=== PATIENT | male | born 1990 | race Caucasian/White ===

== ENCOUNTER 2018-07-03 08:54 | Emergency (ER) | payer SELFPAY ==
[2018-07-03 08:59] VITALS: BP 155/98; PULSE 96; RESP 18; TEMP 36.7; O2SAT 999; BMI 41.3
--- NOTE | 2018-07-03 10:29 | ED_ITS ---
HPI - Nausea/Vomiting/Diarrhea General Chief complaint: Nausea/Vomiting/Diarrhea Stated complaint: Throwing up, black puke Time Seen by Provider: 07/03/18 10:01 Source: patient Mode of arrival: ambulatory Limitations: no limitations History of Present Illness HPI Narrative: This is a 28-year-old male comes emergency department with complaint of nausea and vomiting. Patient states he threw up black substance overnight. He states that he has not had any more emesis since about 630 this morning. He states that he felt sort and nauseated for the day before and then last night about 6:00 a.m. started vomiting. He states he has not had any abdominal pain he has a little bit of discomfort on each side of his ribs after vomiting but otherwise no abdominal pain. He is not having any back pain or flank pain. He has not had any fevers or chills. He has had maybe a little bit of nasal congestion. Has not had any diarrhea or constipation. No black or bloody stools. He states he did have sick contact with a neighbor's kid who was at his house for several hours was recently diagnosed with influenza and had vomiting. Patient also works in the food industry. Patient is reluctant to do any work or further evaluation as he does not have insurance. The patient denies any other past medical history, he does not normally have symptoms like this the last time he had it was about age 17. No prior surgeries. He is not on any medications regularly. Related Data Previous Rx's Medication Instructions Recorded ondansetron HCl [Zofran] 4 mg PO QID PRN #5 tab 07/03/18 Allergies Allergy/AdvReac Type Severity Reaction Status Date / Time No Known Drug Allergies Allergy Verified 07/03/18 08:59 Review of Systems Review of Systems ROS Unobtainable: All systems reviewed & are unremarkable except as noted in HPI and below Constitutional Denies body ache(s), Denies chills, Denies fever(s), Denies headache(s), Denies lethargy and Denies weakness ENT Ears, Nose, Mouth, and Throat: Denies headache(s) and Reports nasal congestion Cardiovascular Denies chest pain, Denies irregular heart rhythm, Denies lightheadedness, Denies palpitations, Denies dyspnea and Denies dyspnea on exertion Respiratory Denies chest congestion, Denies cough, Denies dyspnea, Denies dyspnea on exertion and Denies wheezing Gastrointestinal Gastrointestinal: Denies abdominal pain, Denies melena, Denies hematochezia, Denies change in bowel habits, Denies diarrhea, Reports nausea, Reports vomiting and Reports hematemesis ( Black emesis) Genitourinary Denies hematuria, Denies dysuria, Denies flank pain and Denies urinary urgency Musculoskeletal Denies back pain Integumentary/Breasts Denies unusual bruising Neurologic Denies headache(s) and Denies weakness Endocrine Denies palpitations Allergic/Immunologic Denies wheezing PFSH Social History alcohol intake: current Exam Narrative Exam Narrative: GENERAL: Alert and oriented x three, obese male in no acute distress. HEENT: Head normocephalic, atraumatic, EOMI, pupils reactive, face symmetric, moist mucous membranes NECK: Supple, full range of motion CARDIOVASCULAR: Regular rate and rhythm without murmurs, rubs or gallops. RESPIRATORY: Breath sounds equal bilaterally, no wheezes rales or rhonchi. ABDOMEN: Soft, nontender. Normoactive bowel sounds all 4 quadrants. No guarding or rebound, rigidity, no mass : No CVA tenderness EXTREMITIES: Normal range of motion, no clubbing or edema. Neurovascularly intact NEUROLOGICAL: Cranial nerves II through XII grossly intact. Moving all extremities SKIN: Warm, dry, no petechiae, no rashes or lesions. Initial Vital Signs Initial Vital Signs: Vital Signs Temperature 98.1 F 07/03/18 08:59 Pulse Rate 96 H 07/03/18 08:59 Respiratory Rate 18 07/03/18 08:59 Blood Pressure 155/98 H 07/03/18 08:59 Pulse Oximetry 999 H 07/03/18 08:59 Course Orders Ordered: Discontinued Medications Ondansetron HCl (Zofran) 4 mg IV NOW ONE Stop: 07/03/18 09:01 Vital Signs - 8 hr 07/03/18 08:59 Temperature 98.1 F Pulse Rate 96 H Respiratory Rate 18 Blood Pressure 155/98 H Pulse Oximetry 999 H [facility] - Nausea/Vomiting/Diarrhea Lab Data Attestation: I reviewed the patient's lab results. MDM Narrative Medical decision making narrative: Discussed with patient he has not had any emesis for about 4 hr. He is not having any new abdominal pain. Per patient he does not drink large amount of alcohol. Discussed with patient if he has further symptoms he should return but vital signs are stable and suspicion for AA acute GI bleed is low at this point. I suspect that it may been more gastritis or some black or blood from recurrent vomiting. Will give patient a script for a couple of tablets of Zofran as he still has some nausea but if he is unable to afford told him he could try a dose of Benadryl at home. Discharge Plan Departure Patient Disposition: Home Clinical Impression: Nausea & vomiting Discharge Date/Time: 07/03/18 11:24 Interventions: ED Discharge Assessment Last Done: 07/03/18 11:24 Instructions: DI for Vomiting -- Adult Activity Restrictions/Additional Instructions: Return to the emergency department for fevers greater than 100.4 specially for having persistent vomiting, new abdominal pain, persistent black or red vomit, black or bloody stools, back pain, signs of dehydration or other new or concerning symptoms. You may take Zofran 1 tablet every 6 hr as needed for nausea. slowly advance her diet as tolerated, start with small sips of clear liquids for several hours then you may take larger sips of clear liquids and then advance to solid food such as bananas, rice or toast for similar foods. If he tolerates these after several hours he may start to eat a regular food. Prescriptions: New ondansetron HCl [Zofran] 4 mg tablet 4 mg PO QID PRN (Reason: nausea and vomiting) Qty: 5 RF: 0
--- NOTE | 2018-07-03 11:06 | PC.NURSE ---
pt spoke with dr hester and decided not to do the work up and to come back if needed.
[2018-07-03 11:07] VITALS: BP 120/73; PULSE 81; RESP 18; O2SAT 100
== END 2018-07-03 11:24 | disposition home or self-care (01) ==
PROVIDERS: Emergency Provider Emergency Medicine
DX: R11.2 Nausea with vomiting, unspecified (principal)
CPT/HCPCS: 99282; 99283

== ENCOUNTER → 2019-05-29 08:58 | Outpatient (CLI) | payer OTHER, SELFPAY ==
[2019-05-29 09:48] LABS: Influenza A - CEPHEID Flu A NEGATIVE (NEGATIVE); Influenza B - CEPHEID Flu B NEGATIVE (NEGATIVE)
== END ==
PROVIDERS: Visit Provider Nurse Practitioner
DX: R68.89 Other general symptoms and signs (principal)
CPT/HCPCS: 87502

== ENCOUNTER → 2021-08-15 13:22 | Outpatient (CLI) | payer OTHER, MEDICAID, SELFPAY ==
--- NOTE | 2021-08-15 13:25 | DI.RAD.S_ITS ---
PROCEDURE: XR LUMBAR SPINE 2-3V INDICATIONS: chronic low back pain with left leg tingling/numbness TECHNIQUE: 3 views of the lumbar spine were acquired. COMPARISON: None. FINDINGS: Bones: 5 [id number] vertebrae are present. There is grade 1 anterolisthesis at L5-S1 measuring approximately 0.7 cm. There is also multilevel minimal retrolisthesis from T12-L1 through L4-5 measuring up to 0.2 cm at L4-5. There is multilevel degenerative disc disease also demonstrated throughout the lumbar spine including moderate narrowing at L5-S1 with endplate sclerosis and osteophytosis. There is mild facet arthropathy in the lower lumbar spine. No vertebral body compression fractures. No suspicious bony lesions. Soft tissues: Overlying bowel gas pattern is normal. No suspicious soft tissue calcifications. IMPRESSION: 1. Grade 1 anterolisthesis at L5-S1 and minimal multilevel retrolisthesis throughout the lumbar spine as described. 2. Multilevel degenerative disc disease most prominent at L5-S1 where there is moderate degeneration. 3. Mild facet arthropathy in the lower lumbar spine. Dictated by: Roel Santoyo M.D. on 08/15/2021 at 16:53 Approved by: Roel Santoyo M.D. on 08/15/2021 at 16:55
--- NOTE | 2021-08-15 13:25 | DI.RAD.S_ITS ---
PROCEDURE: XR KNEE LT 3V INDICATIONS: left knee pain, locking and giving way sensation TECHNIQUE: 3 views of the knee were acquired. COMPARISON: None. FINDINGS: Bones: No fractures or dislocations. No suspicious bony lesions. Soft tissues: No joint effusion. Dystrophic calcification is noted adjacent to the lateral femoral condyle. In addition there is appearance of a loose body. IMPRESSION: Calcification appearing suggestive of loose body. Dictated by: Leigh Tobias M.D. on 08/15/2021 at 16:08 Approved by: Leigh Tobias M.D. on 08/15/2021 at 16:08
[2021-08-15 14:08] LABS: Add Manual Diff / Slide Review NO; Basophils Absolute Auto 100 /uL (0-100); Basophils Percent Auto 0.9 % (0-2); Eosinophils Absolute Auto 100 /uL (0-450); Eosinophils Percent Auto 1.2 % (2-4); Hematocrit 46.3 % (41-53); Hemoglobin 15.7 g/dL (13.5-17.5); Lymphocytes Absolute Auto 2100 /uL (1100-4500); Lymphocytes Percent Auto 24.5 % (25-40); Mean Corpuscular HGB Conc 33.9 % (30-36); Mean Corpuscular Hemoglobin 28.3 PG (26-34); Mean Corpuscular Volume 83.3 fL (80-100); Monocytes Absolute Auto 700 /uL (0-900); Monocytes Percent Auto 7.9 % (3-14); Neutrophils Absolute Auto 5600 /uL (1500-7000); Neutrophils Percent Auto 65.5 % (50-75); Platelet Count 329 X10^3/uL (150-400); Red Blood Cell Count 5.56 X10^6/uL (4.5-5.9); Red Cell Distribution Width 14.4 % (11.6-14.8); White Blood Cell Count 8.6 X10^3/uL (4.5-11.0)
[2021-08-15 14:29] LABS: Alanine Aminotransferase 57 IU/L (<50); Albumin 4.5 g/dL (3.5-5.0); Albumin Globulin Ratio 1.4 (1.0-2.8); Alkaline Phosphatase 90 U/L (38-126); Aspartate Aminotransferase 39 IU/L (17-59); BUN Creatinine Ratio 10.2 (6-22); Bilirubin Total 0.5 mg/dL (0.2-1.3); Blood Urea Nitrogen 11 mg/dL (9-20); Calcium 9.1 mg/dL (8.4-10.2); Carbon Dioxide 28 mmol/L (22-32); Chloride 106 mmol/L (98-107); Cholesterol 219 mg/dL (140-199); Estimated Glomerular Filt Rate > 60 mL/min (>60); Globulin 3.3 g/dL (1.7-4.1); Glucose 97 mg/dL (70-100); HDL Cholesterol 58 mg/dL (40-60); HEMOLYSIS < 15 (0-50); LDL Cholesterol Calculated 145 mg/dL (<100); Potassium 4.6 mmol/L (3.4-5.1); Sodium 138 mmol/L (137-145); Total Protein 7.8 g/dL (6.3-8.2); Triglycerides 79 mg/dL (35-150)
[2021-08-15 14:58] LABS: TSH w/ Reflex to FT4 0.83 uIU/mL (0.47-4.68)
== END ==
PROVIDERS: PCP Family Medicine; Referring Provider Family Medicine; Visit Provider Family Medicine
DX: M51.37 Other intervertebral disc degeneration, lumbosacral region (principal); M43.17 Spondylolisthesis, lumbosacral region; M47.816 Spondylosis without myelopathy or radiculopathy, lumbar region; M25.862 Other specified joint disorders, left knee; M25.562 Pain in left knee; M54.50 Low back pain, unspecified; G89.29 Other chronic pain; E66.9 Obesity, unspecified; G43.909 Migraine, unspecified, not intractable, without status migrainosus
CPT/HCPCS: 36415; 72100; 73562; 80053; 80061; 84443; 85025

== ENCOUNTER → 2022-02-11 10:50 | Outpatient (CLI) | payer OTHER, MEDICAID, SELFPAY ==
--- NOTE | 2022-02-11 11:37 | DI.MRI.S_ITS ---
PROCEDURE: MR LUMBAR SPINE WO CON INDICATIONS: chronic back pain, spondylolisthesis TECHNIQUE: Noncontrast sagittal T1 spin echo and T2 fast echo, sagittal STIR, and T2 fast spin echo through the lumbar spine. In cases with scoliosis, additional coronal T2 fast spin echo may be performed. COMPARISON: [facility], CR, XR LUMBAR SPINE 2-3V, 08/15/2021, 13:30. FINDINGS: Image quality: Excellent. Alignment and Curvature: Grade 1 L5-S1 anterolisthesis is seen. Associated pars defects are not definitely seen on these images. Bone Marrow: Marrow is of normal overall signal. No acute vertebral body compression fractures. Spinal Cord: Conus medullaris terminates at the L1 level. Visualized cord demonstrates normal signal and size. Paraspinous Soft Tissues: No paravertebral masses. T12-L1: Normal appearance. L1-L2: Normal appearance. L2-L3: Mild loss of disc height is seen. Loss of disc signal is seen. Mild to moderate disc bulge is seen, which is eccentric the left, with a broad disc protrusion, extending into the left neural foramen. There is a focal annular fissure seen posteriorly and on the left. Mild facet joint hypertrophy is seen. There is moderate left-sided and no significant right-sided neural foraminal narrowing. Moderate central canal narrowing is seen. L3-L4: [id number]-an-htiqfxqh loss of disc height and disc signal can be seen. Moderate disc bulge is seen, with a central/left disc protrusion. There is a focal annular fissure seen posteriorly. At least moderate facet hypertrophy is seen. Moderate bilateral neural foraminal narrowing can be seen, left worse than right. Moderate central canal narrowing is seen. L4-L5: Moderate loss of disc height is seen. Loss of disc signal is seen. Moderate generalized disc bulge is seen. There is a superimposed central disc protrusion. Moderate facet joint hypertrophy is seen. There is at least moderate bilateral neural foraminal narrowing seen, right slightly worse than left. There is a degree of compression seen upon the exiting nerve roots. Moderate central canal narrowing is seen. L5-S1: At least moderate loss of disc height and disc signal can be seen. Reactive marrow endplate changes are seen, which are hyperintense on T1-weighted and T2-weighted imaging and most consistent with fatty metaplasia (Modic type II changes). Mild to moderate disc bulge is seen, with a central disc protrusion/disc central disc uncovering. Prominent facet hypertrophy is seen. There is moderate to severe bilateral neural foraminal narrowing seen, with an associated a degree of compression seen upon the exiting nerve roots. Mild central canal narrowing is seen. IMPRESSION: Lumbar spine degenerative changes are seen, which are worst at the L5-S1 level. Dictated by: Fazal Mendoza M.D. on 02/13/2022 at 8:27 Approved by: Fazal Mendoza M.D. on 02/13/2022 at 8:33
== END ==
PROVIDERS: PCP Family Medicine; Referring Provider Family Medicine; Visit Provider Family Medicine
DX: M47.816 Spondylosis without myelopathy or radiculopathy, lumbar region (principal); M47.817 Spondylosis without myelopathy or radiculopathy, lumbosacral region; M54.42 Lumbago with sciatica, left side; M48.061 Spinal stenosis, lumbar region without neurogenic claudication; M43.10 Spondylolisthesis, site unspecified; G89.29 Other chronic pain
CPT/HCPCS: 72148

== ENCOUNTER 2022-06-29 12:42 | Outpatient (CLI) | payer OTHER, MEDICAID, SELFPAY ==
[2022-06-29] VITALS (8 sets, daily range): BP systolic 113–145; BP diastolic 71–88; PULSE 90–99; RESP 15–20; TEMP 36.7; O2SAT 94–95
--- NOTE | 2022-06-29 12:42 | DI.RAD.S_ITS ---
PROCEDURE: PAIN L/S TRANSFORAMINAL INJECT INDICATIONS: SPONDYLOSIS COMPARISON: None. FINDINGS: Fluoroscopic spot filming was performed to verify placement of spinal needles at the L4-5 level(s), as labeled on the films. Appropriate location(s) of the needle tip(s) was confirmed by injection of iodinated contrast. IMPRESSION: Fluoroscopic guidance utilized for a transfemoral injection. Dictated by: Bossman Ramsey M.D. on 06/29/2022 at 17:14 Approved by: Bossman Ramsey M.D. on 06/29/2022 at 17:15
[2022-06-29] MEDS: MIDAZOLAM 2 MG/2 ML VIAL IV (13:38)
[2022-06-29] MEDS: IOPAMIDOL 15 ML VIAL 3 ML INJ (13:42)
[2022-06-29] MEDS: BUPIVACAINE 0.25% (PF) VIAL 2 ML INJ (13:42)
[2022-06-29] MEDS: DEXAMETHASONE 10 MG/ML VIAL 15 MG INJ (13:42)
--- NOTE | 2022-06-29 17:14 | P.PCN_ITS ---
Date/Time/Diagnoses Date of procedure: 06/29/22 Time of procedure: 13:30 Procedure Notes Physician: Rio Villa Total Fluoroscopy time (seconds): 30 Total sedation minutes: 13 Procedure in detail & Post-procedure care: Left L5-S1 Transforaminal Epidural Steroid Injection Indications: Nikolas is referred by Dr. Topete for treatment of lumbar radiculopathy with low back and leg pain. Preoperative diagnosis: Left lumbar radiculopathy Postoperative diagnosis: Same Focused Examination: Ax3 Mood and affect are normal Vital Signs: VSS ASA: 2 Consent: Following review of allergies and potential side effects/complications, including, but not necessarily limited to, infection, allergic reaction, local tissue breakdown, stroke, temporary or permanent nerve injury, paralysis, and possible , the patient indicated that they understood and agreed to proceed.? An informed consent document was signed by the patient, witnessed by a nurse and placed in the patient's chart.? Additionally, other treatment options including medications and physical therapy were reviewed with the patient. All questions were answered. Site was then marked. Anesthesia: After review of previous anesthetic history and IV conscious sedation, the patient was deemed safe to proceed with today's procedure with IV conscious sedation. IV sedation was accomplished with Versed 2 mg administered by the RN after order by Dr. Villa. Sedation was titrated to patient comfort during the course of the procedure. Patient remained responsive to all verbal commands. Position: Prone Monitoring: NIBP, Pulse oximetry, 3 lead EKG Needle used: 22G, 5 inch spinal needle Contrast: Isovue 300M Injectate: 15 mg Dexamethasone mixed with 0.25% bupivacaine 2 mL Technique: The skin was prepped with chloraprep and draped in a sterile fashion. Time out was performed as per protocol. Oxygen applied via NC. Skin and subcutaneous structures of the needle entry site were infiltrated with 3mL of lidocaine 1%. Under fluoroscopic guidance, using an ipsilateral oblique view,?a 22 gauge 5 inch needle was advanced to the base of the L5?pedicle.? The needle was advanced to the superio-posterior aspect of the neural foramen under lateral view.? Oblique and AP views were rechecked. No paresthesias noted by the patient during needle placement. In AP view and utilizing real-time digital subtraction fluoroscopy, 2 ml contrast was slowly injected. Epidural spread was observed without evidence for intravascular nor intrathecal uptake. The above injectate was then administered, and the needle was subsequently withdrawn. Band-Aids applied to injection sites. EBL: less than 1 ml Complications: None Post Procedure: Patient was taken to the recovery and monitored. The patient was provided a Pain Log to continue to record the patient's response to the target- specific procedure prior to the patient's follow-up visit with the referring physician. Patient was stable upon discharge. Detailed post procedure instructions were provided. Patient was asked to call in the event of worsening pain, fever, weakness, numbness or bladder or bowel incontinence.
== END 2022-06-29 14:09 | disposition home or self-care (01) ==
LOC: RAD 12:42
PROVIDERS: PCP Family Medicine; Referring Provider Anesthesiology; Visit Provider Anesthesiology
DX: M54.16 Radiculopathy, lumbar region (principal)
CPT/HCPCS: 64483; 99152; J1100; J2250; J3490

== ENCOUNTER 2022-08-15 10:25 | Outpatient (CLI) | payer OTHER, MEDICAID, SELFPAY ==
[2022-08-15] VITALS (8 sets, daily range): BP systolic 122–154; BP diastolic 67–97; PULSE 98–106; RESP 18–20; TEMP 36.9; O2SAT 96–98
--- NOTE | 2022-08-15 10:26 | DI.RAD.S_ITS ---
PROCEDURE: PAIN L/S TRANSFORAMINAL INJECT INDICATIONS: SPONDYLOSIS COMPARISON: [facility], , PAIN L/S TRANSFORAMINAL INJECT, 06/29/2022, 14:37. FINDINGS: Fluoroscopic spot filming was performed to verify placement of a spinal needle at the L5-S1 level, as labeled on the films. Appropriate location of the needle tip was confirmed by injection of iodinated contrast. IMPRESSION: No significant intraprocedural abnormality. Dictated by: Fazal Mendoza M.D. on 08/15/2022 at 11:17 Approved by: Fazal Mendoza M.D. on 08/15/2022 at 11:17
[2022-08-15] MEDS: MIDAZOLAM 2 MG/2 ML VIAL IV (11:02)
[2022-08-15] MEDS: IOPAMIDOL 15 ML VIAL 3 ML INJ (11:07)
[2022-08-15] MEDS: DEXAMETHASONE 10 MG/ML VIAL 20 MG INJ (11:07)
--- NOTE | 2022-08-15 11:18 | P.PCN_ITS ---
Date/Time/Diagnoses Date of procedure: 08/15/22 Time of procedure: 11:00 Procedure Notes Physician: Rio Villa Total Fluoroscopy time (seconds): 26 Total sedation minutes: 11 Procedure in detail & Post-procedure care: Right L5-S1 Transforaminal Epidural Steroid Injection Indications: Nikolas is presenting for treatment of lumbar radiculopathy with low back and leg pain. Preoperative diagnosis: Right lumbar radiculopathy Postoperative diagnosis: Same Focused Examination: Ax3 Mood and affect are normal Vital Signs: VSS ASA: 2 Consent: Following review of allergies and potential side effects/complications, including, but not necessarily limited to, infection, allergic reaction, local tissue breakdown, stroke, temporary or permanent nerve injury, paralysis, and possible , the patient indicated that they understood and agreed to proceed.? An informed consent document was signed by the patient, witnessed by a nurse and placed in the patient's chart.? Additionally, other treatment options including medications and physical therapy were reviewed with the patient. All questions were answered. Site was then marked. Anesthesia: After review of previous anesthetic history and IV conscious s edation, the patient was deemed safe to proceed with today's procedure with IV conscious sedation. IV sedation was accomplished with midazolam 2 mg administered by the RN after order by Dr. Villa. Sedation was titrated to patient comfort during the course of the procedure. Patient remained responsive to all verbal commands. Position: Prone Monitoring: NIBP, Pulse oximetry, 3 lead EKG Needle used: 22G 5 inch spinal needle Contrast: Isovue 300M Injectate: 15 mg Dexamethasone mixed with 1% lidocaine 1.5ml Technique: The skin was prepped with chloraprep and draped in a sterile fashion. Time out was performed as per protocol. Oxygen applied via NC. Skin and subcutaneous structures of the needle entry site were infiltrated with 3mL of lidocaine 1%. Under fluoroscopic guidance, using an ipsilateral oblique view,?a 22 gauge 5 inch needle was advanced to the base of the right L5?pedicle.? The needle was advanced to the superio-posterior aspect of the neural foramen under lateral view.? Oblique and AP views were rechecked. No paresthesias noted by the patient during needle placement. In AP view and utilizing real-time digital subtraction fluoroscopy, 2 ml contrast was slowly injected. Epidural spread was observed without evidence for intravascular nor intrathecal uptake. Contrast spread was seen craniocaudally. The above injectate was then administered, and the needle was subsequently withdrawn. Band-Aids applied to injection sites. EBL: less than 1 ml Complications: None Post Procedure: Patient was taken to the recovery and monitored. The patient was provided a Pain Log to continue to record the patient's response to the target- specific procedure prior to the patient's follow-up visit with the referring physician. Patient was stable upon discharge. Detailed post procedure instructions were provided. Patient was asked to call in the event of worsening pain, fever, weakness, numbness or bladder or bowel incontinence.
== END 2022-08-15 11:34 | disposition home or self-care (01) ==
LOC: RAD 10:26
PROVIDERS: PCP Family Medicine; Referring Provider Anesthesiology; Visit Provider Anesthesiology
DX: M54.16 Radiculopathy, lumbar region (principal)
CPT/HCPCS: 64483; 99152; J1100; J2250

== ENCOUNTER → 2023-01-02 15:47 | Outpatient (CLI) | payer OTHER, SELFPAY ==
[2023-01-02 16:25] LABS: Alanine Aminotransferase 48 IU/L (<50); Albumin 4.5 g/dL (3.5-5.0); Albumin Globulin Ratio 1.3 (1.0-2.8); Alkaline Phosphatase 82 U/L (38-126); Aspartate Aminotransferase 29 IU/L (17-59); BUN Creatinine Ratio 15.8 (6-22); Bilirubin Total 0.9 mg/dL (0.2-1.3); Blood Urea Nitrogen 16 mg/dL (9-20); Calcium 8.9 mg/dL (8.4-10.2); Carbon Dioxide 26 mmol/L (22-32); Chloride 102 mmol/L (98-107); Cholesterol 197 mg/dL (140-199); Estimated Glomerular Filt Rate > 60 mL/min (>60); Globulin 3.6 g/dL (1.7-4.1); Glucose 97 mg/dL (70-100); HDL Cholesterol 49 mg/dL (40-60); HEMOLYSIS < 15 (0-50); LDL Cholesterol Calculated 117 mg/dL (<100); Potassium 4.1 mmol/L (3.4-5.1); Sodium 137 mmol/L (137-145); Total Protein 8.1 g/dL (6.3-8.2); Triglycerides 155 mg/dL (35-150)
== END ==
PROVIDERS: PCP Family Medicine; Referring Provider Physician Assistant; Visit Provider Physician Assistant
DX: Z13.9 Encounter for screening, unspecified (principal); E78.5 Hyperlipidemia, unspecified; R74.8 Abnormal levels of other serum enzymes
CPT/HCPCS: 36415; 80053; 80061; 83036

== ENCOUNTER → 2023-01-08 14:53 | Outpatient (CLI) | payer OTHER, SELFPAY ==
--- NOTE | 2023-01-08 14:54 | DI.US.S_ITS ---
PROCEDURE: US SCROTUM INDICATIONS: LEFT SCROTAL MASS X 1 YEAR. RECENT PAIN AND INCREASED SIZE. TECHNIQUE: Real-time scanning was performed of the scrotum and testicles, with image documentation. Color and pulse Doppler interrogation was performed of both testicles. COMPARISON: None. FINDINGS: Right: Testicle is normal in size at 4.5 x 3.1 x 2.2 cm. Tiny echogenic foci can be seen within the right testicle. Epididymis is normal in overall size and demonstrates a 4 mm epididymal head cyst. No hydrocele or varicoceles. Overlying scrotal skin is normal in thickness. Left: Testicle is normal in size at 4.3 x 3.3 x 2.3 cm. Tiny echogenic foci can be seen within the right testicle. Epididymis is normal in overall size and morphology. No hydrocele or varicoceles. Overlying scrotal skin is normal in thickness. The palpable lesion is seen superior to the scrotum and corresponds to a skin lesion with increased vascularity that measures 2.1 x 1 x 1.4 cm. This demonstrates a largely low echogenicity appearance, with mild internal apparent calcification. Doppler: Color and pulse Doppler demonstrate normal and symmetric arterial flow in both testicles. IMPRESSION: Negative for testicular mass. The palpable focus corresponds to a skin lesion within the scrotal wall superior to the testicle. 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 Dictated by: Fazal Mendoza M.D. on 01/08/2023 at 15:45 Approved by: Fazal Mendoza M.D. on 01/08/2023 at 15:47
== END ==
PROVIDERS: PCP Family Medicine; Referring Provider Physician Assistant; Visit Provider Physician Assistant
DX: N50.89 Other specified disorders of the male genital organs (principal)
CPT/HCPCS: 76870

== ENCOUNTER 2023-03-28 09:16 | Outpatient (CLI) | payer OTHER, SELFPAY ==
[2023-03-28] VITALS (8 sets, daily range): BP systolic 111–156; BP diastolic 73–97; PULSE 95–100; RESP 16–20; TEMP 36.5; O2SAT 94–97
--- NOTE | 2023-03-28 10:00 | DI.RAD.S_ITS ---
PROCEDURE: PAIN L/S TRANSFORAM INJECT KRISTEL COMPARISON: None. INDICATIONS: SPONDYLOSIS FINDINGS: Single fluoroscopic image demonstrates needle placement at right L5-S1. IMPRESSION: Single fluoroscopic image demonstrates needle placement at right L5-S1. Please see procedure report for details. Dictated by: Emir Vanessa M.D. on 03/28/2023 at 14:02 Approved by: Emir Vanessa M.D. on 03/28/2023 at 14:02
[2023-03-28] MEDS: MIDAZOLAM 2 MG/2 ML VIAL IV (10:13)
[2023-03-28] MEDS: iopamidoL 15 ML VIAL 3 ML INJ (10:16)
[2023-03-28] MEDS: DEXAMETHASONE 10 MG/ML VIAL 20 MG INJ (10:16)
--- NOTE | 2023-03-28 12:12 | P.PCN_ITS ---
Date/Time/Diagnoses Date of procedure: 03/28/23 Time of procedure: 10:00 Procedure Notes Physician: Rio Villa Total Fluoroscopy time (seconds): 48 Total sedation minutes: 17 Procedure in detail & Post-procedure care: Bilateral L5-S1 Transforaminal Epidural Steroid Injection Indications: Nikolas is presenting for treatment of lumbar radiculopathy with low back and leg pain. Preoperative diagnosis: Lumbar radiculopathy Postoperative diagnosis: Same Focused Examination: Ax3 Mood and affect are normal Vital Signs: VSS ASA: 2 Consent: Following review of allergies and potential side effects/complications, including, but not necessarily limited to, infection, allergic reaction, local tissue breakdown, stroke, temporary or permanent nerve injury, paralysis, and possible , the patient indicated that they understood and agreed to proceed.? An informed consent document was signed by the patient, witnessed by a nurse and placed in the patient's chart.? Additionally, other treatment options including medications and physical therapy were reviewed with the patient. All questions were answered. Site was then marked. Anesthesia: After review of previous anesthetic history and IV conscious sedat ion, the patient was deemed safe to proceed with today's procedure with IV conscious sedation. IV sedation was accomplished with midazolam 2 mg administered by the RN after order by Dr. Villa. Sedation was titrated to patient comfort during the course of the procedure. Patient remained responsive to all verbal commands. Position: Prone Monitoring: NIBP, Pulse oximetry, 3 lead EKG Needle used: 22G 5 inch spinal needle Contrast: Isovue 300M Injectate: 7.5 mg Dexamethasone mixed with 1% lidocaine 1 ml and normal saline 1 mL per side Technique: The skin was prepped with chloraprep and draped in a sterile fashion. Time out was performed as per protocol. Oxygen applied via NC. Skin and subcutaneous structures of the needle entry site were infiltrated with 3mL of lidocaine 1%. Under fluoroscopic guidance, using an ipsilateral oblique view,?a 22 gauge 5 inch needle was advanced to the base of the right L5?pedicle.? The needle was advanced to the superio-posterior aspect of the neural foramen under lateral view.? Oblique and AP views were rechecked. No paresthesias noted by the patient during needle placement. In AP view and utilizing real-time digital subtraction fluoroscopy, 2 ml contrast was slowly injected. Epidural spread was observed without evidence for intravascular nor intrathecal uptake. Contrast spread was seen craniocaudally. The above injectate was then administered without paresthesias and the needle was subsequently withdrawn. The needle entry site were infiltrated with 3mL of lidocaine 1%. Under fluoroscopic guidance, using an ipsilateral oblique view,?a 22 gauge 5 inch needle was advanced to the base of the left L5?pedicle.? The needle was advanced to the superio-posterior aspect of the neural foramen under lateral view.? Oblique and AP views were rechecked. No paresthesias noted by the patient during needle placement. In AP view and utilizing real-time digital subtraction fluoroscopy, 2 ml contrast was slowly injected. Epidural spread was observed without evidence for intravascular nor intrathecal uptake. Contrast spread was seen craniocaudally. The above injectate was then administered without paresthesias and the needle was subsequently withdrawn. Band-Aids applied to injection sites. EBL: less than 1 ml Complications: None Post Procedure: Patient was taken to the recovery and monitored. The patient was provided a Pain Log to continue to record the patient's response to the target- specific procedure prior to the patient's follow-up visit with the referring physician. Patient was stable upon discharge. Detailed post procedure instructions were provided. Patient was asked to call in the event of worsening pain, fever, weakness, numbness or bladder or bowel incontinence.
== END 2023-03-28 10:52 | disposition home or self-care (01) ==
LOC: RAD 09:17
PROVIDERS: PCP Family Medicine; Referring Provider Anesthesiology; Visit Provider Anesthesiology
DX: M54.16 Radiculopathy, lumbar region (principal)
CPT/HCPCS: 64483; 99152; J1100; J2250

== ENCOUNTER 2023-03-30 07:31 | Day surgery (SDC) | payer OTHER, SELFPAY ==
[2023-03-28 14:02] VITALS: BMI 40.1
[2023-03-30] VITALS (7 sets, daily range): BP systolic 113–152; BP diastolic 68–91; PULSE 91–110; RESP 12–16; TEMP 36.3–37.7; O2SAT 94–99; BMI 40.1
--- NOTE | 2023-03-30 | PATH_ITS ---
[facility] Accession Number: [id number] No. of containers..01 Tissue . 01 Material submitted: . scrotum - LEFT SCROTAL WALL MASS . 01 Diagnosis: Left Scrotal Wall, Excision: Verrucous epidermal inclusion cyst, ruptured and inflamed. MRV 04/12/2023 1337 Local . 01 Electronically signed: . Екатерина Lama MD, Dermatopathologist NPI- [id number] . 01 Gross description: . The specimen is received in formalin, labeled with the patient's name, , and left scrotal wall mass, and consists of an unoriented ellipse of skin measuring 2.1 x 2.0 x 1.5 cm. The margin is inked blue. Sectioning reveals a thin, smooth-walled cystic structure measuring 1.3 cm in greatest dimension filled with wyatt, paste-like material. A surgical sales representative section is submitted in cassette A1. ([id number]) . The remaining specimen is submitted entirely in cassettes A2-A4. ([id number]) /FRR 04/11/2023 0822 Local . 01 Pathologist provided ICD-10: L72.0 . 01 CPT . 266594 Specimen Comment: A courtesy copy of this report has been sent to [phone] Performed at: [facility] [address] [place] [address], [place], [place] [id number] MD Roel Baldwin MD Phone: [phone]
[2023-03-30] MEDS: LACTATED RINGERS 1,000 ML 21 ML IV (07:58)
--- NOTE | 2023-03-30 09:36 | PM.PREOP ---
Pre-operative Note Interval Note History & Physical reviewed/Exam performed by Physician: Yes Changes to H&P: No
[2023-03-30] MEDS: CEFAZOLIN VIAL 3 GM in SODIUM CHLORIDE 0.9% 100 ML IV (10:19)
[2023-03-30] MEDS: ACETAMINOPHEN IV 1,000 MG/100 ML VIAL 400 MG IV (10:34)
--- NOTE | 2023-03-30 10:37 | SUR.OPER ---
Supine on padded OR bed, head on pillow, arms secured on padded arm boards at <90 degrees abduction, legs uncrossed, safety belt at thigh, tape over blanket over lower legs.
[2023-03-30] MEDS: BUPIVACAINE 0.25% (PF) 30 ML, EPINEPHrine 0.15 MG INJ (10:44)
[2023-03-30] MEDS: BUPIVACAINE LIPOSOME 266 MG/20 ML VIAL INJ (10:47)
[2023-03-30] MEDS: BACITRACIN 28 GM OINT 1 APPLIC TOP (11:14)
--- NOTE | 2023-03-30 11:29 | P.OP_ITS ---
Operative Date/Time/Diagnoses Date of procedure: 03/30/23 Time of procedure: 11:29 Pre-op diagnosis: 1. Left scrotal wall mass. Post-op diagnosis: same Procedure & Clinicians Procedure: 1. Excision left scrotal wall mass (3 x 5 cm). Same procedure as scheduled: Yes Indications: 1. Left scrotal wall mass. 2. Pain. Surgeon: Chetan Ibrahim Click Yes if Unassisted: Yes Anesthesia Type: General and Local (0.25% Marcaine with epinephrine and 1.33% Exparel.) Operative Notes Findings: Ovoid subcutaneous left upper lateral scrotal wall mass with smooth margin. Closure Type: primary Estimated Blood Loss (mL): 1 Blood products transfused: none Procedure in detail: The patient was positioned in supine and administered general anesthesia. The lower abdomen, genitalia, and groin in upper thighs were prepped and draped in sterile fashion. A surgical marker was used to delineate planned incision lines to encompass the index lesion. Mixed local anesthetic was then used to infiltrate the parameter and subcutaneous space. An elliptical cutaneous incision was made encompassing the index lesion. Once in the subcutaneous plane blunt, sharp, and blunt dissection were used to mobilize the structure and separate it from attachments. The lesion was then submitted to pathology for routine gross and microscopic examination. Pinpoint cautery was conducted for hemostasis. 3-0 Monocryl was used in the subcutaneous space in a running fashion to close space in approximate the dartos fascia. The skin was reapproximated with a running 4-0 Monocryl using a horizontal mattress technique. The skin surface was then cleaned and dried and dressed with antibiotic ointment, Telfa and then sterile fluff gauze. The patient was then fitted with a pair of net short to keep the dressing arrangement in place. The patient was then awakened, transferred to [facility], and then transferred recovery in stable condition. Complications: none Post-operative Condition: stable Disposition: PACU Plan for aftercare: Discharge home.
== END 2023-03-30 12:10 | disposition home or self-care (01) ==
PROVIDERS: PCP Family Medicine; Referring Provider Specialist; Visit Provider Specialist
PROC: (CPT 55150; principal; 2023-03-30 09:15)
DX: N50.89 Other specified disorders of the male genital organs (principal)
CPT/HCPCS: 55150; C9290; J0131; J0171; J0330; J0690; J1100; J1885; J2250; J2405; J3010

== ENCOUNTER → 2023-07-11 16:49 | Outpatient (CLI) | payer OTHER, SELFPAY ==
--- NOTE | 2023-07-11 16:51 | DI.RAD.S_ITS ---
PROCEDURE: XR CERVICAL SPINE 2V OR 3V INDICATIONS: Right shoulder pain; numbness R thumb TECHNIQUE: 4 view(s) of the cervical spine were acquired. COMPARISON: None. FINDINGS: Bones: No fractures or dislocations to the T1 level. The lateral masses of C1 appear intact on the odontoid view. No suspicious bony lesions. Minimal degenerative change in the cervical spine. This is best seen on the lateral projection where there is endplate sclerosis and tiny osteophytes. Soft tissues: No prevertebral soft tissue swelling. IMPRESSION: Minimal degenerative change seen in the cervical spine. If clinically indicated MRI could be considered for further evaluation. Dictated by: Sarwat Larsen M.D. on 07/12/2023 at 9:23 Approved by: Sarwat Larsen M.D. on 07/12/2023 at 9:25
== END ==
LOC: RAD 16:51
PROVIDERS: PCP Family Medicine; Referring Provider Physician Assistant; Visit Provider Physician Assistant
DX: M54.12 Radiculopathy, cervical region (principal)
CPT/HCPCS: 72040

== ENCOUNTER → 2023-08-14 08:10 | Outpatient (CLI) | payer OTHER, SELFPAY ==
--- NOTE | 2023-08-14 08:11 | DI.MRI.S_ITS ---
PROCEDURE: MR CERVICAL SPINE WO CON INDICATIONS: Cervical radiculopathy TECHNIQUE: Noncontrast sagittal T1 spin echo and T2 fast spin echo, sagittal STIR, foraminal oblique sagittal T2 fast spin echo, and axial gradient echo or T2 fast spin echo through the cervical spine. COMPARISON: None. FINDINGS: Image quality: Excellent. Alignment and Curvature: There is loss of normal cervical lordosis. Bone Marrow: Marrow demonstrates normal overall signal. Mild reactive signal within the endplates adjacent to the C3-C4, C4-C5, C5-C6, and C6-C7 intervertebral discs. Spinal Cord: Visualized spinal cord has normal size and signal. No cerebellar tonsillar herniation. Paraspinous Soft Tissues: No paravertebral masses. Prevertebral soft tissues are normal in thickness. Diffuse congenital canal stenosis and short pedicles. C2-C3: Mild disc desiccation. Mild facet and uncovertebral hypertrophy bilaterally. Mild canal stenosis. Moderate bilateral foraminal stenosis. C3-C4: Mild disc desiccation and diffuse disc bulge. Mild facet and uncovertebral hypertrophy bilaterally. Mild canal stenosis. Moderate to severe bilateral foraminal stenosis with bilateral C4 nerve root compression. C4-C5: Mild disc desiccation and diffuse disc bulge. Mild facet and uncovertebral hypertrophy bilaterally. Mild canal stenosis. Severe bilateral foraminal stenosis with bilateral C5 nerve root compression. C5-C6: Mild disc desiccation and diffuse disc bulge with superimposed right posterolateral protrusion. Mild facet and uncovertebral hypertrophy bilaterally. Moderate canal stenosis. Severe right and moderate left foraminal stenosis. Right C6 nerve root compression. C6-C7: Mild disc desiccation and diffuse disc bulge. Mild facet and uncovertebral hypertrophy bilaterally. Mild canal stenosis. Severe right and moderate left foraminal stenosis. Right C7 nerve root compression. C7-T1: Normal appearance. IMPRESSION: 1. 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 2. Multilevel degenerative disc and facet disease, as well as uncovertebral hypertrophy. 3. Multilevel canal stenoses, worst at C5-C6 where there is moderate canal stenosis. 4. Multilevel foraminal stenoses, worst at C3-C4, C4-C5, C5-C6, and C6-C7, where there is associated intraforaminal nerve root compression. Recommend correlation with clinical symptoms to ascertain relevance of these findings. Dictated by: Yazmin Stewart M.D. on 08/14/2023 at 10:56 Approved by: Yzamin Stewart M.D. on 08/14/2023 at 11:10
== END ==
LOC: MRI 08:10
PROVIDERS: PCP Family Medicine; Referring Provider Anesthesiology; Visit Provider Anesthesiology
DX: M47.22 Other spondylosis with radiculopathy, cervical region (principal); M50.11 Cervical disc disorder with radiculopathy, high cervical region; M48.02 Spinal stenosis, cervical region
CPT/HCPCS: 72141

== ENCOUNTER 2023-09-05 09:04 | Outpatient (CLI) | payer OTHER, SELFPAY ==
[2023-09-05] VITALS (9 sets, daily range): BP systolic 122–160; BP diastolic 74–108; PULSE 87–95; RESP 14–22; TEMP 36.6; O2SAT 95–98
[2023-09-05] MEDS: MIDAZOLAM 2 MG/2 ML VIAL IV (09:58)
--- NOTE | 2023-09-05 10:00 | DI.RAD.S_ITS ---
PROCEDURE: PAIN C/T INTERLAMINAR INJECT INDICATIONS: Cervical Radiculopathy COMPARISON: None. FINDINGS: Fluoroscopic spot filming was performed to verify placement of spinal needles at the C7-T1 level(s), as labeled on the films. Appropriate location(s) of the needle tip(s) was confirmed by injection of iodinated contrast. IMPRESSION: Fluoro guidance was provided intraoperatively for C7-T1 interlaminar epidural steroid injection performed by the ordering physician. Dictated by: Yovany Fang M.D. on 09/05/2023 at 11:34 Approved by: Yovany Fang M.D. on 09/05/2023 at 11:35
[2023-09-05] MEDS: DEXAMETHASONE 10 MG/ML VIAL INJ (10:02)
[2023-09-05] MEDS: iopamidoL 15 ML VIAL 3 ML INJ (10:02)
--- NOTE | 2023-09-05 12:19 | P.PCN_ITS ---
Date/Time/Diagnoses Date of procedure: 09/05/23 Time of procedure: 10:00 Procedure Notes Physician: Rio Vilal Total Fluoroscopy time (seconds): 24 Total sedation minutes: 14 Procedure in detail & Post-procedure care: C7-T1 Interlaminar Epidural Steroid Injection Indications: Nikolas is presenting for treatment of cervical radiculopathy with neck and arm pain. Preoperative diagnosis: Cervical radiculopathy Postoperative diagnosis: Same Focused Examination: Ax3 Mood and affect are normal Vital Signs: VSS ASA: 3 Consent: Risks, benefits and alternatives discussed at a prior clinic visit and the patient voiced understanding at that time. Prior to today's injection, we again went over the risks, benefits and alternatives. Following review of allergies and potential side effects/complications, including, but not necessa rily limited to, infection, allergic reaction, local tissue breakdown, stroke, temporary or permanent nerve injury, paralysis, and possible , the patient indicated that they understood and agreed to proceed.? A consent document was signed by the patient, witnessed by a nurse and placed in the patient's chart.? Additionally, other treatment options including medications and physical therapy were reviewed with the patient. All questions were answered. Site was then marked. Anesthesia: After review of previous anesthetic history and IV conscious sedation, the patient was deemed safe to proceed with today's procedure with IV conscious sedation. IV sedation was accomplished with midazolam 2 mg administered by the RN after physician order. Sedation was titrated to patient comfort during the course of the procedure. Patient remained responsive to all verbal commands. Position: Prone Monitoring: NIBP, Pulse oximetry, 3 lead EKG Needle used: 18 G 3.5? Tuohy Contrast: Isovue 300-M 2 mL Injectate: Dexamethasone 10 mg followed by Normal Saline 2 mL Technique: The skin was prepped with chloraprep and then draped in a sterile fashion. Time out was performed as per protocol. Oxygen applied via NC. Skin and subcutaneous structures of the needle entry site was then infiltrated with 3 mL of lidocaine 1%. Under AP, lateral and contralateral oblique fluoroscopic control, the Tuohy needle was guided into the C7-T1 epidural space. The space was accessed with loss of resistance technique. Isovue 300-M was then injected and the spread was consistent with the epidural space. There was no evidence for intravascular or intrathecal uptake. After negative aspiration, the above- mentioned injectate was then slowly administered and the needle withdrawn. The patient expressed no unusual discomfort or paresthesias during the injection. Band-Aids applied to injection sites. EBL: less than 1 ml Complications: None Post Procedure: Patient was taken to the recovery and monitored. The patient was provided a Pain Log to continue to record the patient's response to the target- specific procedure prior to the patient's follow-up visit with the referring physician. Patient was stable upon discharge. Detailed post procedure instructions were provided. Patient was asked to call in the event of worsening pain, fever, weakness, numbness or bladder or bowel incontinence.
== END 2023-09-05 10:28 | disposition home or self-care (01) ==
LOC: RAD 09:05
PROVIDERS: PCP Family Medicine; Referring Provider Anesthesiology; Visit Provider Anesthesiology
DX: M54.12 Radiculopathy, cervical region (principal)
CPT/HCPCS: 62321; 99152; J1100; J2250

== ENCOUNTER → 2023-11-12 10:06 | Outpatient (CLI) | payer OTHER, SELFPAY ==
[2023-11-12 11:38] LABS: Add Manual Diff / Slide Review NO; Basophils Absolute Auto 100 /uL (0-100); Basophils Percent Auto 0.7 % (0-2); Eosinophils Absolute Auto 200 /uL (0-450); Hematocrit 48.3 % (41-53); Hemoglobin 16.3 g/dL (13.5-17.5); Lymphocytes Absolute Auto 1800 /uL (1100-4500); Lymphocytes Percent Auto 22.7 % (25-40); Mean Corpuscular HGB Conc 33.7 % (30-36); Mean Corpuscular Volume 86.1 fL (80-100); Monocytes Absolute Auto 700 /uL (0-900); Monocytes Percent Auto 8.7 % (3-14); Neutrophils Absolute Auto 5200 /uL (1500-7000); Neutrophils Percent Auto 65.9 % (50-75); Platelet Count 296 X10^3/uL (150-400); Red Blood Cell Count 5.61 X10^6/uL (4.5-5.9); Red Cell Distribution Width 14.5 % (11.6-14.8); White Blood Cell Count 7.9 X10^3/uL (4.5-11.0)
[2023-11-12 12:26] LABS: Alanine Aminotransferase 72 IU/L (<50); Albumin 4.4 g/dL (3.5-5.0); Albumin Globulin Ratio 1.6 (1.0-2.8); Alkaline Phosphatase 103 U/L (38-126); Aspartate Aminotransferase 35 IU/L (17-59); BUN Creatinine Ratio 16.3 (6-22); Bilirubin Total 0.5 mg/dL (0.2-1.3); Blood Urea Nitrogen 16 mg/dL (9-20); Calcium 9.2 mg/dL (8.4-10.2); Carbon Dioxide 24 mmol/L (22-32); Chloride 106 mmol/L (98-107); Cholesterol 185 mg/dL (140-199); Estimated Glomerular Filt Rate > 60 mL/min (>60); Globulin 2.7 g/dL (1.7-4.1); Glucose 93 mg/dL (70-100); HDL Cholesterol 61 mg/dL (40-60); HEMOLYSIS < 15 (0-50); LDL Cholesterol Calculated 100 mg/dL (<100); Potassium 5.6 mmol/L (3.4-5.1); Sodium 138 mmol/L (137-145); Total Protein 7.1 g/dL (6.3-8.2); Triglycerides 122 mg/dL (35-150)
[2023-11-12 13:02] LABS: TSH w/ Reflex to FT4 1.05 uIU/mL (0.47-4.68)
[2023-11-13 05:13] LABS: Apolipoprotein B 86 mg/dL (<90)
== END ==
PROVIDERS: PCP Family Medicine; Referring Provider Family Medicine; Visit Provider Family Medicine
DX: Z00.00 Encounter for general adult medical examination without abnormal findings (principal)
CPT/HCPCS: 36415; 80053; 80061; 82172; 83695; 84443; 85025